=== PATIENT | female | born 2000 | race Caucasian/White ===

== ENCOUNTER 2024-03-01 08:53 | Emergency (ER) | payer OTHER, SELFPAY ==
[2024-03-01 09:00] VITALS: BP 130/90; PULSE 82; RESP 18; TEMP 36.5; O2SAT 97
[2024-03-01 09:22] LABS: BEDSIDEPREGUCG Negative
--- NOTE | 2024-03-01 09:32 | ED.PSYCH ---
HPI - Psych General Chief Complaint: Psychiatric Symptoms Stated Complaint: SI, relapse requesting rehab Time Seen by Provider: 03/01/24 09:07 Source: patient Mode of arrival: EMS Limitations: no limitations History of Present Illness HPI Narrative: This is a 24-year-old female that presents to the emergency department for thoughts of self harm. Reports she has recently relapsed on substances. She had been clean for about 3 years. Over the last month she has started drinking again. She is also using drugs. Her last drink was yesterday. No history of withdrawal. No previous history of self-harm. She does report previous psychiatric hospitalizations. Denies homicidal ideations, hallucinations. Related Data Allergies Allergy/AdvReac Type Severity Reaction Status Date / Time No Known Allergies Allergy Verified 03/01/24 10:39 Review of Systems Review of Systems: CONSTITUTIONAL: Denies fever CARDIOVASCULAR: Denies chest pain GASTROINTESTINAL: Denies abdominal pain PSYCHIATRIC: Reports depression. All systems reviewed & are unremarkable except as noted in HPI and below PMFSH Past Medical History Medical History (Updated 03/01/24 @ 14:18 by Marcy Mccarty PA-C) History of bipolar disorder Social History Social History (Updated 03/01/24 @ 09:34 by Marcy Mccarty PA-C) Alcohol intake: current Substance use: current Substance use type: marijuana, crack/cocaine, prescription drug and other Exam Narrative: GENERAL: Disheveled, well-nourished, tearful HEAD: Normocephalic, atraumatic. EYES: EOMI. CHEST: No respiratory distress. HEART: Regular rate EXTREMITIES: Normal range of motion. No edema. SKIN: Warm, dry, no rash. NEURO: No focal deficits. Alert and oriented x3. PSYCH: Depressed mood and affect Course Course Emergency Course: Patient was medically cleared for evaluation by crisis. She is safety planned and has been given resources for substance use treatment Vital Signs Vital signs: Vital Signs Temperature 97.7 F 03/01/24 09:00 Pulse Rate 82 03/01/24 09:00 Respiratory Rate 18 03/01/24 09:00 Blood Pressure 130/90 03/01/24 09:00 Pulse Oximetry 97 03/01/24 09:00 Oxygen Delivery Room Air 03/01/24 09:00 Temperature 97.5 F L 03/01/24 14:31 Pulse Rate 88 03/01/24 14:31 Respiratory Rate 15 03/01/24 14:31 Blood Pressure 153/96 H 03/01/24 14:31 Pulse Oximetry 96 03/01/24 14:31 Oxygen Delivery Room Air 03/01/24 09:00 MDM - Psych MDM Narrative Medical decision making narrative: Patient presents to the emergency department for passive thoughts of self harm. No previous history of self-harm. Reports history of bipolar disorder. Reporting problems with substance use. Patient has no other focal complaints. CBC and metabolic panel without concerning findings. Urine with 6-10 white blood cells, also squamous epithelial cells. Patient does not currently have any urinary symptoms. Will let this go for culture. Drug screen positive for amphetamines, cocaine and cannabinoids. Alcohol level negative. Patient was medically cleared for evaluation by crisis. She has been re-evaluated and is no longer endorsing suicidal thoughts. She is safety planned and has been given resources for substance use treatment. She was given warnings to return to the ER Differential Diagnosis Differential diagnosis: Likely suicidal ideation, bipolar disorder, depression, drug-induced psychotic disorder and acute anxiety Lab Data Attestation: I reviewed the patient's lab results. 03/01/24 09:26 03/01/24 09:26 Labs: Lab Results 03/01/24 03/01/24 03/01/24 Range/Units 09:10 09:26 09:27 WBC 8.4 (4.5-10.0) K/mm3 RBC 4.96 (4.2-5.4) M/mm3 Hgb 14.2 (12.0-15.0) g/dL Hct 42.8 (37.0-47.0) % MCV 86.3 (80-100) fl MCH 28.6 (26-34) pg MCHC 33.2 (32-36) g/dl RDW 14.3 (11.5-14.5) % Plt Count 378 H (150-
[2024-03-01 09:33] LABS: Basophils Absolute Auto 0.1 K/mm3 (0.0-0.1); Basophils Percent Auto 0.8 % (0.2-1.2); Eosinophils Absolute Auto 0.3 K/mm3 (0-0.3); Hematocrit 42.8 % (37.0-47.0); Hemoglobin 14.2 g/dL (12.0-15.0); Immature Granulocyte Absolute 0.07 K/mm3 (0.00-0.031); Immature Granulocyte Percent A 0.8 % (0-0.5); Lymphocytes Absolute Auto 2.33 K/mm3 (0.9-3.2); Lymphocytes Percent Auto 27.7 % (18.3-44.2); Mean Corpuscular HGB Conc 33.2 g/dl (32-36); Mean Corpuscular Hemoglobin 28.6 pg (26-34); Mean Corpuscular Volume 86.3 fl (80-100); Mean Platelet Volume 9.1 fl (7.4-10.4); Monocytes Absolute Auto 0.5 K/mm3 (0.1-0.6); Monocytes Percent Auto 6.2 % (2.6-8.5); Neutrophils Absolute Auto 5.1 K/mm3 (1.3-6.7); Neutrophils Percent Auto 60.5 % (45.5-73.1); Platelet Count Result 378 k/mm3 (150-375); Red Blood Count 4.96 M/mm3 (4.2-5.4); Red Cell Distribution Width 14.3 % (11.5-14.5); White Blood Count 8.4 K/mm3 (4.5-10.0)
[2024-03-01 09:42] LABS: Alanine Aminotransferase 44 U/L (6-35); Albumin Level 4.2 g/dL (3.5-5.1); Alkaline Phosphatase 100 U/L (38-126); Anion Gap 9 mmol/L (4-12); Aspartate Amino Transferase 31 U/L (14-36); Bilirubin,Total 0.6 mg/dL (0.2-1.3); Blood Urea Nitrogen 7 mg/dL (7-17); Calcium 9.4 mg/dL (8.4-10.2); Carbon Dioxide 25 mmol/L (22-30); Chloride 103 mmol/L (98-107); Estimated Glomerular Filt Rate > 60; Glucose 95 mg/dL (65-110); Sodium 137 mmol/L (137-145)
[2024-03-01 09:43] LABS: Add Urine Microscopic? YES; Appearance Urine Cloudy (Clear); Bacteria Urine 1+ /hpf; Bilirubin Urine 2+ (Negative); Blood Urine Negative (Negative); Color Urine Dark Yellow (Yellow); Glucose Urine UA Negative (Negative); Ketones Urine 1+ mg/dL (Negative); Leukocyte Esterase Ur Trace LEU/UL (Negative); Nitrate Urine Negative (Negative); Non Pathogenic Casts 0-2; Protein Urine 1+ mg/dL (Negative); RBC Urine 0-2 /hpf (0-2); Specific Grav Ur 1.031 (1.001-1.035); Squamous Epithelial Cell Urine Few /hpf (Few)
[2024-03-01 09:45] LABS: Ethanol < 10 mg/dL (<10)
[2024-03-01 10:06] LABS: Amphetamine Screen Urine Positive (Negative); Barbiturate Screen Urine Negative (Negative); Benzodiazepines Screen Urine Negative (Negative); Cannabinoid Screen Urine Positive (Negative); Cocaine Screen Urine Positive (Negative); Methadone Screen Urine Negative (Negative); Opiate Screen Urine Negative (Negative); Phencyclidine Screen Urine Negative (Negative)
[2024-03-01 10:31] LABS: Thyroid Stimulating Hormone Reflex 0.404 uIU/mL (0.465-4.68)
[2024-03-01 11:19] LABS: Free T4 Free Thyroxine Reflex 1.24 ng/dL (0.78-2.19)
[2024-03-01 12:09] VITALS: BP 130/88; PULSE 78; RESP 16; O2SAT 97
[2024-03-01 12:12] LABS: Total Triiodothyronine (T3) 1.07 NG/ML (0.97-1.69)
[2024-03-01 13:36] LABS: Influenza A QL RT-PCR Negative (Negative); Influenza B QL RT-PCR Negative (Negative); SARS-CoV-2 RNA PCR Negative (Negative)
[2024-03-01 14:31] VITALS: BP 153/96; PULSE 88; RESP 15; TEMP 36.4; O2SAT 96
== END 2024-03-01 14:36 | disposition home or self-care (01) ==
PROVIDERS: Emergency Provider Physician Assistant
DX: F19.10 Other psychoactive substance abuse, uncomplicated (principal); F31.9 Bipolar disorder, unspecified
CPT/HCPCS: 36415; 80053; 80307; 81001; 81025; 84439; 84443; 84480; 85025; 87086; 87088; 87636; 99284